=== PATIENT | male | born 1995 | race Caucasian/White ===

== ENCOUNTER 2017-06-10 07:45 | Emergency (ER) | payer OTHER ==
[~2017-06-10] VITALS: Ht 180.3 cm; Wt 81.7 kg
[~2017-06-10 07:45] MED LIST: ACETAMINOPHEN-1 EAC1 PO; BACTRIM DS TAB1 EACH PO; HYDROCODONE-APA1 TA1 PO; KEFLEX500 M1 PO; NOHOMEMEDICATIONS; NORCO 5-325 TA1 EAC1 PO; PENICILLIN VK250 MG PO; PHENERGAN 25 MG25 M1 PO; ULTRAM 50MG TAB50 MG PO
[2017-06-10 08:24] LABS: ABSOLUTE BASOPHILS 0.1 thou/uL (0.0-0.2); ABSOLUTE EOSINOPHILS 0.4 thou/uL (0.0-0.7); ABSOLUTE LYMPHOCYTES 1.8 thou/uL (0.8-5.3); ABSOLUTE MONOCYTES 0.9 thou/uL (0.0-1.2); ABSOLUTE NEUTROPHILS 5.3 thou/uL (1.6-8.1); EOSINOPHILS 4.7 %; HEMATOCRIT 43.9 % (42.0-52.0); HEMOGLOBIN 14.9 gm/dL (14.0-18.0); LYMPHOCYTES 21.2 %; MCH 26.7 pg (26.0-34.0); MCV 78.8 fL (80.0-100.0); MONOCYTES 10.1 %; MPV 8.9 fl. (7.2-11.1); NUCLEATED RBCS 0 /100WBC; PLATELET COUNT* 210 thou/uL (150-400); RBC 5.57 mil/uL (4.50-6.00); RDW-CV 13.5 % (10.5-14.5); WBC 8.4 thou/uL (4.0-11.0)
[2017-06-10 08:27] LABS: CALCIUM 9.1 mg/dL (8.5-10.1); POTASSIUM 3.9 mmol/L (3.5-5.1)
[2017-06-10 08:32] LABS: ALBUMIN 3.5 g/dL (3.4-5.0); TOTAL BILIRUBIN 0.7 mg/dL (<0.1-1.0); TOTAL PROTEIN 7.6 g/dL (6.4-8.2)
[2017-06-10] MEDS ORDERED: Magic Mouthwash PO (10:31)
[2017-06-10] MEDS ORDERED: AUGMENTIN600 MG/5 M PO (10:31)
[2017-06-10 10:52] VITALS: BP 114/72
== END 2017-06-10 10:53 | disposition home or self-care (01) ==
LOC: M.ERS 07:45
PROVIDERS: Personal Emergency Response Attendant
DX: J02.0 Streptococcal pharyngitis (principal)

== ENCOUNTER 2018-06-04 03:27 | Emergency (ER) | payer OTHER ==
[~2018-06-04] VITALS: Ht 177.8 cm; Wt 81.7 kg
[~2018-06-04 03:27] MED LIST changes: +AUGMENTIN600 MG/5 M PO; +Magic Mouthwash PO
[2018-06-04 04:17] LABS: URINE BILIRUBIN NEGATIVE (Negative); URINE BLOOD NEGATIVE (Negative); URINE CLARITY CLEAR; URINE COLOR YELLOW; URINE GLUCOSE-RANDOM NEGATIVE (Negative); URINE KETONES NEGATIVE (Negative); URINE LEUKOCYTES-REFLEX NEGATIVE (Negative); URINE NITRITE-REFLEX NEGATIVE (Negative); URINE PROTEIN NEGATIVE (Negative); URINE SPECIFIC GRAVITY 1.025 (1.005-1.030)
[2018-06-04 04:25] LABS: HEMATOCRIT 40.7 % (42.0-52.0); HEMOGLOBIN 13.7 gm/dL (14.0-18.0); MCH 26.8 pg (26.0-34.0); MCHC 33.7 g/dL (28.0-37.0); MCV 79.5 fL (80.0-100.0); MPV 8.4 fl. (7.2-11.1); NUCLEATED RBCS 0 /100WBC; PLATELET COUNT* 204 thou/uL (150-400); RBC 5.12 mil/uL (4.50-6.00); RDW-CV 13.2 % (10.5-14.5); WBC 10.6 thou/uL (4.0-11.0)
[2018-06-04 04:34] LABS: CALCIUM 8.3 mg/dL (8.5-10.1); CREATININE 1.1 mg/dL (0.6-1.3); POTASSIUM 3.9 mmol/L (3.5-5.1)
[2018-06-04 04:38] LABS: ALBUMIN 3.4 g/dL (3.4-5.0); TOTAL BILIRUBIN 0.7 mg/dL (<0.1-1.0); TOTAL PROTEIN 6.4 g/dL (6.4-8.2)
[2018-06-04] MEDS ORDERED: ZOFRAN ODT4 MG PO (05:23)
[2018-06-04 05:28] LABS: ABSOLUTE LYMPHOCYTES 0.5 thou/uL (0.8-5.3); ABSOLUTE MONOCYTES 0.5 thou/uL (0.0-1.2); ABSOLUTE NEUTROPHILS 9.5 thou/uL (1.6-8.1); PLATELET ESTIMATE ADEQUATE
[2018-06-04 05:29] LABS: ANISOCYTOSIS 1+; POIKILOCYTOSIS 1+
[2018-06-04 05:41] VITALS: BP 108/65
== END 2018-06-04 05:41 | disposition home or self-care (01) ==
LOC: M.ERS 03:27
PROVIDERS: Personal Emergency Response Attendant
DX: R11.2 Nausea with vomiting, unspecified (principal); R10.9 Unspecified abdominal pain

== ENCOUNTER 2018-10-28 11:06 | Emergency (ER) | payer OTHER ==
[~2018-10-28] VITALS: Ht 177.8 cm; Wt 81.7 kg
[~2018-10-28 11:06] MED LIST changes: +ZOFRAN ODT4 MG PO
[2018-10-28] MEDS ORDERED: ACETAMINOPHEN-1 EAC1 PO (11:36)
[2018-10-28] MEDS ORDERED: ROBAXIN 750 MG750 MG PO (11:36)
[2018-10-28] MEDS ORDERED: MEDROLDOSEPACK PO (11:36)
[2018-10-28 11:49] VITALS: BP 159/90
== END 2018-10-28 11:49 | disposition home or self-care (01) ==
LOC: M.ERS 11:06
DX: S16.1XXA Strain of muscle, fascia and tendon at neck level, initial encounter (principal); X58.XXXA Exposure to other specified factors, initial encounter; Y93.89 Activity, other specified; Y92.89 Other specified places as the place of occurrence of the external cause; Y99.8 Other external cause status

== ENCOUNTER 2018-11-08 09:44 | Emergency (ER) | payer OTHER ==
[~2018-11-08] VITALS: Ht 177.8 cm; Wt 86.2 kg
[~2018-11-08 09:44] MED LIST changes: +MEDROLDOSEPACK PO; +ROBAXIN 750 MG750 MG PO
[2018-11-08] MEDS ORDERED: AMOXICILLIN875 MG PO (10:20)
[2018-11-08] MEDS ORDERED: MEDROLDOSEPACK PO (10:20)
[2018-11-08 10:28] VITALS: BP 127/87
== END 2018-11-08 10:30 | disposition home or self-care (01) ==
LOC: M.ERS 09:44
DX: J02.0 Streptococcal pharyngitis (principal)

== ENCOUNTER 2018-11-29 10:14 | Emergency (ER) | payer OTHER ==
[~2018-11-29] VITALS: Ht 177.8 cm; Wt 86.2 kg
[~2018-11-29 10:14] MED LIST changes: +AMOXICILLIN875 MG PO
[2018-11-29 11:23] LABS: ABSOLUTE BASOPHILS 0.1 thou/uL (0.0-0.2); ABSOLUTE EOSINOPHILS 0.3 thou/uL (0.0-0.7); ABSOLUTE LYMPHOCYTES 2.4 thou/uL (0.8-5.3); ABSOLUTE MONOCYTES 0.7 thou/uL (0.0-1.2); ABSOLUTE NEUTROPHILS 3.6 thou/uL (1.6-8.1); BASOPHILS 1.1 %; EOSINOPHILS 4.6 %; HEMATOCRIT 43.3 % (42.0-52.0); HEMOGLOBIN 14.7 gm/dL (14.0-18.0); LYMPHOCYTES 33.7 %; MCH 26.6 pg (26.0-34.0); MCHC 33.9 g/dL (28.0-37.0); MCV 78.5 fL (80.0-100.0); MONOCYTES 9.6 %; MPV 8.6 fl. (7.2-11.1); NUCLEATED RBCS 0 /100WBC; PLATELET COUNT* 251 thou/uL (150-400); RBC 5.52 mil/uL (4.50-6.00); RDW-CV 13.9 % (10.5-14.5); WBC 7.2 thou/uL (4.0-11.0)
[2018-11-29 11:34] LABS: CALCIUM 9.2 mg/dL (8.5-10.1); POTASSIUM 3.3 mmol/L (3.5-5.1)
[2018-11-29 11:38] LABS: ALBUMIN 3.9 g/dL (3.4-5.0); TOTAL BILIRUBIN 0.7 mg/dL (<0.1-1.0); TOTAL PROTEIN 7.6 g/dL (6.4-8.2)
[2018-11-29 11:51] VITALS: BP 137/83
--- NOTE | 2018-11-29 15:24 | EKG ---
[place] [address] ELECTROCARDIOGRAM REPORT Name: WMSHANNA Dye Room: [facility]#: [id number] Admission: 11/29/18 Attend Phys: Discharge: 11/29/18 Date of : [birth year] Report #: [id number] THIS REPORT FOR: //name// [facility] ED Test Date: 2018-11-29 Test Time: 11:33:40 Pat Name: SHANNA BOB Department: Room: Gender: M Mechanical Development Engineer: : 1995 Requested By: Brenda Atkins Order Number: [id number] MD: Mat Cazares Measurements Intervals [place] Rate: 72 P: 43 NM: 155 QRS: 8 QRSD: 94 T: 11 QT: 388 QTc: 425 Interpretive Statements Sinus rhythm No previous ECG available for comparison Electronically Signed On 11-29-2018 15:24:14 CDT by Mat Cazares [email or web address] <ELECTRONICALLY SIGNED> By: Mat Cazares MD, [facility] 11/29/18 1524 1133 1133 Mat Cazares MD, FACC /EPI
== END 2018-11-29 11:51 | disposition left against medical advice (07) ==
LOC: M.ERS 10:14
PROVIDERS: Nurse Practitioner Family
DX: G43.909 Migraine, unspecified, not intractable, without status migrainosus (principal)

== ENCOUNTER 2018-12-04 20:17 | Emergency (ER) | payer OTHER ==
[~2018-12-04] VITALS: Ht 177.8 cm; Wt 86.2 kg
[2018-12-04 21:19] LABS: HEMATOCRIT 42.8 % (42.0-52.0); HEMOGLOBIN 14.7 gm/dL (14.0-18.0); MCHC 34.3 g/dL (28.0-37.0); MCV 78.8 fL (80.0-100.0); MPV 8.6 fl. (7.2-11.1); NUCLEATED RBCS 0 /100WBC; PLATELET COUNT* 236 thou/uL (150-400); RBC 5.43 mil/uL (4.50-6.00); RDW-CV 13.8 % (10.5-14.5)
[2018-12-04 21:31] LABS: CALCIUM 9.1 mg/dL (8.5-10.1)
[2018-12-04 21:35] LABS: ALBUMIN 4.1 g/dL (3.4-5.0); TOTAL PROTEIN 7.7 g/dL (6.4-8.2)
[2018-12-04 22:05] LABS: ABSOLUTE EOSINOPHILS 0.3 thou/uL (0.0-0.7); ABSOLUTE LYMPHOCYTES 1.3 thou/uL (0.8-5.3); ABSOLUTE MONOCYTES 0.6 thou/uL (0.0-1.2); ABSOLUTE NEUTROPHILS 11.9 thou/uL (1.6-8.1)
[2018-12-04 22:06] LABS: PLATELET ESTIMATE ADEQUATE
[2018-12-04] MEDS ORDERED: REGLAN 10 MG TA10 MG PO (22:30)
[2018-12-04] MEDS ORDERED: BUTALB-APAP-CA1 EACH PO (22:30)
[2018-12-04 22:49] VITALS: BP 127/91
== END 2018-12-04 22:50 | disposition home or self-care (01) ==
LOC: M.ERS 20:17
PROVIDERS: Nurse Practitioner Family
DX: G43.909 Migraine, unspecified, not intractable, without status migrainosus (principal); R11.2 Nausea with vomiting, unspecified

== ENCOUNTER 2020-09-02 09:30 | Emergency (ER) | payer OTHER ==
[~2020-09-02] VITALS: Ht 180.3 cm; Wt 90.7 kg
[~2020-09-02 09:30] MED LIST changes: +BUTALB-APAP-CA1 EACH PO; +REGLAN 10 MG TA10 MG PO
[2020-09-02] MEDS ORDERED: CEPHALEXIN500 MG PO (10:24)
[2020-09-02 10:31] VITALS: BP 131/88
== END 2020-09-02 10:33 | disposition home or self-care (01) ==
LOC: M.ERS 09:30
DX: L03.011 Cellulitis of right finger (principal)

== ENCOUNTER 2021-04-17 10:47 | Emergency (ER) | payer OTHER ==
[~2021-04-17] VITALS: Ht 177.8 cm; Wt 86.2 kg
[~2021-04-17 10:47] MED LIST changes: +CEPHALEXIN500 MG PO
[2021-04-17 11:05] VITALS: BP 156/106
[2021-04-17 11:41] LABS: INFLUENZA A ANTIGEN Negative (Negative); INFLUENZA B ANTIGEN Negative (Negative)
[2021-04-17] MEDS ORDERED: ONDANSETRON HCL4 M2 PO (11:49)
[2021-04-17] MEDS ORDERED: APAP W/CODEINE1 TA2 PO (11:49)
== END 2021-04-17 11:55 | disposition home or self-care (01) ==
LOC: M.ERS 10:47
PROVIDERS: Family Medicine
DX: U07.1 COVID-19 (principal); G43.909 Migraine, unspecified, not intractable, without status migrainosus